=== PATIENT | male | born 1990 | race African-American/Black ===

== ENCOUNTER 2019-08-21 15:31 | Emergency (ER) | payer MEDICAID, OTHER ==
[~2019-08-21] VITALS: Ht 175.3 cm; Wt 63.5 kg
[2019-08-21 16:36] VITALS: BP 129/81
== END 2019-08-21 18:31 | disposition home or self-care (01) ==
LOC: ER 15:31
DX: S01.81XA Laceration without foreign body of other part of head, initial encounter (principal); V87.8XXA Person injured in other specified noncollision transport accidents involving motor vehicle (traffic), initial encounter; Y93.89 Activity, other specified; Y92.89 Other specified places as the place of occurrence of the external cause; Y99.8 Other external cause status
CPT/HCPCS: 12011; 70486